=== PATIENT | male | born 1985 | race Caucasian/White ===

== ENCOUNTER 2021-06-25 09:17 | Outpatient (REF) | payer OTHER, SELFPAY ==
--- NOTE | ~2021-06-25 | XR_ITS ---
EXAMINATION: XR CHEST CLINICAL INFORMATION: Gastroesophageal reflux disease COMPARISON: None TECHNIQUE: 2 views of the chest were obtained. FINDINGS: Normal symmetric lung volumes. No parenchymal consolidation. No pleural effusion. No pneumothorax. Cardiomediastinal silhouette and pulmonary vascularity are within normal limits. No acute osseous abnormalities. XR/XR chest 2V IMPRESSION: No acute findings
[2021-06-25 11:09] LABS: MANUAL DIFF FLAG NO
[2021-06-25 11:16] LABS: Basophils Percent Auto 0.7 % (0-2); Eosinophils Absolute Auto 0.2 X10*3/uL (0.0-0.4); Eosinophils Percent Auto 2.8 % (0-4); Hematocrit 45.9 % (42.0-52.0); Hemoglobin 15.2 g/dl (14.0-18.0); Imm Gran Abs Auto 0.03 X10*3/uL (0.00-0.03); Imm Gran Pct Auto 0.5 % (0.0-0.4); Lymphocytes Absolute Auto 1.7 X10*3/uL (1.2-4.9); Lymphocytes Percent Auto 28.2 % (20-40); Mean Corpuscular HGB Conc 33.1 g/dl (31.0-36.0); Mean Corpuscular Hemoglobin 29.5 pg (27.0-33.0); Mean Corpuscular Volume 89.1 fL (80.0-98.0); Mean Platelet Volume 11.4 fL (9.4-12.4); Monocytes Absolute Auto 0.5 X10*3/uL (0.1-1.2); Monocytes Percent Auto 8.3 % (2-11); Neutrophils Absolute Auto 3.7 x10*3/uL (2.0-8.3); Neutrophils Percent Auto 59.5 % (45-73); Platelet Count 231 X10*3/uL (160-400); Red Blood Count 5.15 X10*6/uL (4.60-5.80); Red Cell Distribution Width 11.1 % (11.0-16.0); White Blood Count 6.1 X10*3/uL (4.8-10.8)
[2021-06-25 11:37] LABS: Alanine Aminotransferase 33 U/L (0-40); Albumin Level 4.5 g/dL (3.5-5.0); Alkaline Phosphatase 54 U/L (39-117); Anion Gap 11 (12-20); Aspartate Amino Transferase 23 U/L (5-37); Bilirubin Total 0.6 mg/dL (0.0-1.0); Blood Urea Nitrogen 11 mg/dL (9-16); Calcium 9.6 mg/dL (8.4-10.2); Carbon Dioxide 30 mmol/L (22-29); Chloride 101 mmol/L (96-108); Cholesterol 182 mg/dL; Estimated Glomerular Filt Rate > 60; Glucose Random 95 mg/dL (60-115); HDL Cholesterol 39 mg/dL; LDL Cholesterol Calculated 125 mg/dl; Potassium 4.2 mmol/L (3.3-5.1); Sodium 138 mmol/L (135-145); Total Protein 7.5 g/dL (6.5-8.0); Triglycerides 90 mg/dL
--- NOTE | 2021-06-25 11:57 | ECG_ITS ---
Test Reason : CHEST PAIN Blood Pressure : / mmHG Vent. Rate : 062 BPM Atrial Rate : 062 BPM P-R Int : 130 ms QRS Dur : 092 ms QT Int : 378 ms P-R-T Axes : 080 072 045 degrees QTc Int : 383 ms Normal sinus rhythm Normal ECG No previous ECGs available Referred By: Lucinda Plata Electronically Signed By:SILVINO HOLCOMB MD
[2021-06-25 12:03] LABS: Free T4 (Free Thyroxine) 0.97 ng/dL (0.71-1.85); Thyroid Stimulating Hormone 0.52 uIU/mL (0.32-4.0)
[2021-06-25 12:38] LABS: Folate 13.7 ng/mL (> or = 4.0); Vitamin B12 371 pg/mL (200-900)
== END 2021-06-25 09:18 | disposition home or self-care (01) ==
LOC: HO.WFDLDS 09:17
PROVIDERS: PCP Internal Medicine; Visit Provider Internal Medicine
DX: R07.9 Chest pain, unspecified (principal); K21.9 Gastro-esophageal reflux disease without esophagitis; R51.9 Headache, unspecified; E78.00 Pure hypercholesterolemia, unspecified
CPT/HCPCS: 36415; 71046; 80053; 80061; 82607; 82746; 84439; 84443; 85025; 93005

== ENCOUNTER 2021-07-18 08:17 | Outpatient (REF) | payer OTHER, SELFPAY ==
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
== END 2021-07-18 08:18 | disposition home or self-care (01) ==
LOC: HO.CT 08:17
PROVIDERS: Visit Provider Internal Medicine
DX: R51.9 Headache, unspecified (principal)
CPT/HCPCS: 70450

== ENCOUNTER 2022-01-06 09:03 | Outpatient (REF) | payer OTHER, SELFPAY ==
--- NOTE | 2022-01-06 14:16 | PFT_ITS ---
FLOWS: FEV1 103% of predicted at 3.81 L. FVC 92% of predicted at 4.20 L. FEV1 to FVC ratio of 0.91. No bronchodilator response. LUNG VOLUMES: Total lung capacity 95% of predicted at 5.62 L. Residual volume 89% of predicted at 1.31 L. Slow vital capacity 97% of predicted at 4.31 L. Expiratory reserve volume 108% of predicted at 1.47 L. Diffusion capacity is normal. IMPRESSION: No obstructive or restrictive ventilatory defect. No bronchodilator response. Essentially normal pulmonary function test. Leon Vnace MD AP/MODL / [id number]
== END 2022-01-06 09:04 | disposition home or self-care (01) ==
LOC: HO.RESP 09:03
PROVIDERS: PCP Internal Medicine; Visit Provider Internal Medicine
DX: Z87.891 Personal history of nicotine dependence (principal)
CPT/HCPCS: 94060; 94727; 94729

== ENCOUNTER 2022-01-20 10:30 | Outpatient (REF) | payer OTHER, SELFPAY ==
--- NOTE | ~2022-01-20 | FL_ITS ---
EXAMINATION: FL UPPER GI SERIES CLINICAL INFORMATION: R13.10 - Dysphagia, unspecified COMPARISON: Chest radiographs 06/25/2021 TECHNIQUE: Upper GI series and barium swallow are performed using fluoroscopic evaluation in addition to multiple fluoroscopic spot views, including cine images during swallowing. The patient is imaged both upright and prone and using both thick and thin barium sulfate along with effervescent granules. Water siphon test performed. Barium pill challenge also performed. Fluoroscopy time: 1.8 minutes DAP: 12.81 Gycm2 Fluoroscopic spot images: 32 FINDINGS: There is normal esophageal motility. The cervical esophagus shows no web or diverticulum, No cervical achalasia. No aspiration. The thoracic esophagus show no obstruction, stricture, or ulceration. There is no hiatal hernia demonstrated. No gastroesophageal reflux. Use of barium pill shows prompt transit from the mouth to the stomach. The stomach shows no thickened folds or ulcer crater or outlet obstruction. The duodenal bulb is pliable and without ulcer crater or scarring. The post bulbar duodenum and the upper jejunal mucosal pattern are unremarkable. FL/FL upper GI series IMPRESSION: Unremarkable exam.
== END 2022-01-20 10:31 | disposition home or self-care (01) ==
LOC: HO.XRAY 10:30
PROVIDERS: PCP Internal Medicine; Visit Provider Internal Medicine
DX: R13.10 Dysphagia, unspecified (principal); Z87.891 Personal history of nicotine dependence
CPT/HCPCS: 74240

== ENCOUNTER → 2022-01-22 14:26 | Outpatient (BNVA) | payer OTHER, SELFPAY | PROVIDERS: PCP Internal Medicine; Referring Provider Internal Medicine; Visit Provider Surgery | DX: K60.3 Anal fistula (principal) | CPT/HCPCS: 99202 ==

== ENCOUNTER → 2022-01-26 15:51 | Outpatient (BNVA) | payer OTHER, SELFPAY | PROVIDERS: PCP Internal Medicine; Visit Provider Surgery | DX: K62.89 Other specified diseases of anus and rectum (principal) | CPT/HCPCS: 99202 ==

== ENCOUNTER 2022-02-09 10:26 | Outpatient (REF) | payer OTHER, SELFPAY ==
[2022-02-09 10:37] VITALS: BMI 25.7
[2022-02-09 10:44] VITALS: BP 118/79; PULSE 69; RESP 16; TEMP 36.4; O2SAT 98
[2022-02-09 11:21] VITALS: BP 130/72; PULSE 63; RESP 16; O2SAT 99
--- NOTE | 2022-02-09 11:25 | W.PM.OPN ---
Operative Note Operative Note Date of Service: 02/09/22 Narrative: Preop diagnosis: Perianal cyst Postop diagnosis: Anal fistula Procedure: Examination of the anus and rectal areas under local anesthesia Surgeon: Kevin Longoria MD The patient is a 37-year-old male who was scheduled for excision of a perianal cyst today in the minor procedure room. He understood the technique of the procedure. He was aware of the risks, benefits, and alternatives. He was brought to the minor procedure room and placed in prone position. A surgical time-out was done. I applied tape to both buttock to retract this laterally and expose the cyst optimally There was note of a cystic induration seen about 2 cm from the anal verge. This was well-defined. This area was prepped and draped. I then infiltrated this entire area with lidocaine 1%. After giving him a cane, I was able to then examine the area thoroughly. There were no other lesions no induration However I was able to use a fine hemostat to probe into this cystic induration. There was an open sinus and by following this, I was actually able to rectal nice the tract leading into the anal canal. This was therefore consistent with the anal fistula. The tract went radially the anal canal. I therefore did not proceed with excision of this cyst. I explained to him that this was actually an anal fistula with a tract leading to the anal canal. I told him that treatment would require exam under anesthesia and operating room, possible fistulotomy, and possible seton placement I explained to the technique of this procedure. We will schedule him for this procedure in the operating room.
== END 2022-02-09 10:27 | disposition home or self-care (01) ==
LOC: HO.MS 10:26
PROVIDERS: PCP Internal Medicine; Visit Provider Surgery
PROC: (CPT 46922; principal; 2022-02-09 11:00)
DX: K60.3 Anal fistula (principal)
CPT/HCPCS: 46922

== ENCOUNTER 2022-02-17 08:13 | Day surgery (SDC) | payer OTHER, SELFPAY ==
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
[2022-02-17] VITALS (8 sets, daily range): BP systolic 123–144; BP diastolic 58–91; PULSE 77–94; RESP 16–18; TEMP 36.5–37; O2SAT 94–100; BMI 25.7
[2022-02-17] MEDS: Lactated Ringers 1,000 ML 100 ML IVCONT (09:13)
--- NOTE | 2022-02-17 09:33 | MHC.SHP ---
Pre-Procedural Eval Section A Date of Service: 02/17/22 The patient is an INPATIENT: No The History & Physical has been completed within 30 days and I have reviewed it.: Yes Section B Chief Complaint: Other specified diseases of anus and rectum Allergies: Allergies Allergy/AdvReac Type Severity Reaction Status Date / Time No Known Allergies Allergy Verified 01/26/22 16:08 [No Known Allergies*] Plan I have reviewed the history and physical and performed a pertinent physical examination on my patient. No changes have occurred unless specified.
--- NOTE | 2022-02-17 11:10 | P.OP_ITS ---
Operative Note Operative Note Date of Service: 02/17/22 Narrative: Preop diagnosis: Anal fistula Postop diagnosis: Anal fistula, with an external sinus on the left side anterolaterally about 4-5 cm from the anal verge and a 2nd external sinus on the right side, about cm from the anal verge also enter laterally; the left external fistulous tract seemed to a very long tract all the way running towards the posterior anal canal; I could not identify internal fistulous opening on the fistula on the right side Procedure: Exam under anesthesia, excision of a fistulous tract on the left perianal area Surgeon: Kevin Longoria MD The patient is a 37-year-old male who was seen in the office because of what appeared to be a recurrent inflamed cyst the left perianal area. I had scheduled him for excision of this cyst under local anesthesia but on further examination, this actually appeared to be more of a fistulous tract rather than a simple cyst. I therefore schedule him for exam under anesthesia and possible fistulotomy and possible seton placement in the operating room. He understood the technique of the planned procedure as well as the risks, benefits, and alternatives He was brought to the operating room placed in prone radha-knife position under general anesthesia via laryngeal mask airway. The buttocks were retracted with wide tape laterally. The perianal area was prepped and draped in the usual sterile fashion. examination of the perianal area revealed what appeared to be a well-defined external fistulous opening on the left perianal area about 4 cm from the verge. On the right side also anterior laterally is note of a smaller less well-defined external fistulous opening about 1-2 cm from the anal verge. I inserted a Sofi Kraft retractor and examined the anal canal circumferentially. There was no obvious internal fistulous opening nor induration along the dentate line that may represent an obvious internal opening. However, I could feel a cord-like induration from the external fistulous opening on the left that seemed to tortuously lead posteriorly into the midline. I injected this external fistulous opening on the left with hydrogen peroxide solution using a gauge 20 a catheter. There was note of what appeared to be affluent on the posterior midline along the dentate line. I therefore passed the probe from the external fistula and try to advance that through the tract I opened. I unroofed the tract near the renal fistulous opening with electrocautery to allow as to follow this as it went more posteriorly towards the no canal. I was able to act ually visualize the epithelialized tract and I sharply dissected this off of the rest of the subcutaneous layer using Metzenbaum scissors. I try to follow this all the way to the posterior midline but in view of the tortuosity and sharp curvature, I could not directly see where this lead 2. I could not therefore advanced the probe either so I excise this fistula tract to as far as we could reach and this was sent as a specimen. I could not identify the rest of the tract closer to the posterior midline. In view of the risk of creating falls tracts, I decided not to be too aggressive with passing the probe. I therefore cauterized the unroof area. I then turned our attention to the external fistulous opening on the right side. I passed the probe through this but this appeared to be blind and I could not advance it further than about 1 cm. I injected this with hydrogen peroxide in the same manner sub of using an Angiocath but I could not see any effluent in the anal canal. We attempted to pass the probe further but we could not identify the tract leading into the anal canal. Again in view of the risk of creating false tract abdomen, I decided not to continue further. I reexamined the anal canal again using the rosalina Kraft retractor and there did not appear to be any other lesions nor any induration. I infiltrated the perianal area with Marcaine 0.5% for postop analgesia and the procedure was completed The patient tolerated procedure well. There were no immediate complications. Estimated blood loss was less than 5 cc The patient was extubated without difficulty and transferred to recovery room with stable vital signs . I will see him in the office and schedule him for an MRI to identify and define all tracts.
[2022-02-17] MEDS: oxyCODONE HCl Immed Release 5 MG TABLET 10 MG PO (11:37)
[2022-02-17] MEDS: fentaNYL citrate/PF 100 MCG/2 ML VIAL 50 MCG IVPUSH ×2 (11:37→11:42)
== END 2022-02-17 13:04 | disposition home or self-care (01) ==
PROVIDERS: PCP Internal Medicine; Visit Provider Surgery
PROC: (CPT 46270; principal; 2022-02-17 09:50)
DX: K60.3 Anal fistula (principal)
CPT/HCPCS: 46270; 88304; J1885; J2405; J2795; J3010

== ENCOUNTER → 2022-03-02 14:24 | Outpatient (BNVA) | payer OTHER, SELFPAY | PROVIDERS: PCP Internal Medicine; Visit Provider Surgery | DX: K60.3 Anal fistula (principal); Z98.890 Other specified postprocedural states | CPT/HCPCS: 99212 ==

== ENCOUNTER 2022-03-09 18:46 | Outpatient (REF) | payer OTHER, SELFPAY | END 2022-03-09 18:47 | disposition home or self-care (01) | LOC: HO.MRI 18:46 | PROVIDERS: Visit Provider Surgery | DX: Z13.89 Encounter for screening for other disorder (principal) ==

== ENCOUNTER 2022-03-17 10:54 | Outpatient (REF) | payer OTHER, SELFPAY ==
--- NOTE | ~2022-03-17 | MR_ITS ---
EXAMINATION: MR PELVIS WITHOUT AND WITH CONTRAST CLINICAL INFORMATION: Annual fistula. E 60.3. Surgery late January 2022. Follow-up. COMPARISON: Upper GI series 01/20/2022 TECHNIQUE: MRI pelvis is performed without and with 7 mL Gadavist gadolinium contrast. Imaging is performed in 3 planes. FINDINGS: There are no focal inflammatory changes seen in the bowel, mesentery, perirectal soft tissues, or perianal region. No visible fistula or fluid collection. The ischial anal and ischial rectal fossa appears normal. Levator ani appears symmetric. There is no pelvic ascites. No bowel obstruction. There is no deep pelvic or inguinal lymphadenopathy. No inguinal hernia. The bladder is nondistended, unremarkable. Prostate and seminal vesicles appear symmetric. Large [id number] coronal images show no hydronephrosis. There is posterior disc bulging at lumbosacral junction. No bony abnormality. MR/MR pelvis wo/w con IMPRESSION: 1. No visible fistula or fluid collection. 2. No inflammatory changes seen in the bowel, mesentery, perirectal soft tissues, or perianal region. 3. Posterior disc bulging lumbosacral junction.
== END 2022-03-17 10:55 | disposition home or self-care (01) ==
LOC: HO.MRI 10:54
PROVIDERS: Visit Provider Surgery
DX: K60.3 Anal fistula (principal)
CPT/HCPCS: 72197; A9585

== ENCOUNTER → 2022-03-26 14:13 | Outpatient (BNVA) | payer OTHER, SELFPAY | PROVIDERS: PCP Internal Medicine; Visit Provider Surgery | DX: K60.3 Anal fistula (principal) | CPT/HCPCS: 99212 ==

== ENCOUNTER → 2022-04-23 10:22 | Outpatient (BNVA) | payer OTHER, SELFPAY | PROVIDERS: PCP Internal Medicine; Visit Provider Surgery | DX: Z13.89 Encounter for screening for other disorder (principal) ==

== ENCOUNTER → 2022-05-12 11:54 | Outpatient (BNVA) | payer OTHER, SELFPAY | PROVIDERS: PCP Internal Medicine; Visit Provider Physician Assistant | DX: Z13.89 Encounter for screening for other disorder (principal) ==

== ENCOUNTER 2022-05-12 12:45 | Outpatient (REF) | payer OTHER, SELFPAY ==
[2022-05-12 13:52] LABS: MANUAL DIFF FLAG NO
[2022-05-12 13:59] LABS: Basophils Percent Auto 0.4 % (0-2); Eosinophils Absolute Auto 0.1 X10*3/uL (0.0-0.4); Eosinophils Percent Auto 1.8 % (0-4); Hematocrit 43.1 % (42.0-52.0); Hemoglobin 14.7 g/dl (14.0-18.0); Imm Gran Abs Auto 0.02 X10*3/uL (0.00-0.03); Imm Gran Pct Auto 0.3 % (0.0-0.4); Lymphocytes Absolute Auto 2.5 X10*3/uL (1.2-4.9); Lymphocytes Percent Auto 36.9 % (20-40); Mean Corpuscular HGB Conc 34.1 g/dl (31.0-36.0); Mean Corpuscular Hemoglobin 29.9 pg (27.0-33.0); Mean Corpuscular Volume 87.6 fL (80.0-98.0); Mean Platelet Volume 11.1 fL (9.4-12.4); Monocytes Absolute Auto 0.6 X10*3/uL (0.1-1.2); Monocytes Percent Auto 8.3 % (2-11); Neutrophils Absolute Auto 3.6 x10*3/uL (2.0-8.3); Neutrophils Percent Auto 52.3 % (45-73); Platelet Count 248 X10*3/uL (160-400); Red Blood Count 4.92 X10*6/uL (4.60-5.80); Red Cell Distribution Width 11.3 % (11.0-16.0); White Blood Count 6.8 X10*3/uL (4.8-10.8)
[2022-05-12 14:44] LABS: Erythrocyte Sedimentation Rate 6 MM/HR (0-15)
[2022-05-12 15:00] LABS: Alanine Aminotransferase 32 U/L (0-40); Albumin Level 4.5 g/dL (3.5-5.0); Alkaline Phosphatase 55 U/L (39-117); Anion Gap 11 (12-20); Aspartate Amino Transferase 21 U/L (5-37); Bilirubin Total 0.8 mg/dL (0.0-1.0); Blood Urea Nitrogen 8 mg/dL (9-16); C Reactive Protein 0.26 mg/dL (< or = 0.50); Calcium 9.5 mg/dL (8.4-10.2); Carbon Dioxide 33 mmol/L (22-29); Chloride 101 mmol/L (96-108); Estimated Glomerular Filt Rate > 60; Glucose Random 88 mg/dL (60-115); Potassium 3.8 mmol/L (3.3-5.1); Sodium 141 mmol/L (135-145); Total Protein 7.3 g/dL (6.5-8.0)
[2022-05-12 15:17] LABS: Thyroid Stimulating Hormone 0.54 uIU/mL (0.32-4.0)
== END 2022-05-12 12:46 | disposition home or self-care (01) ==
LOC: HO.WFDLDS 12:45
PROVIDERS: Visit Provider Physician Assistant
DX: Z01.818 Encounter for other preprocedural examination (principal); R19.4 Change in bowel habit; K62.5 Hemorrhage of anus and rectum; K60.3 Anal fistula
CPT/HCPCS: 36415; 80053; 84443; 85025; 85652; 86140; 99202

== ENCOUNTER → 2022-05-13 13:38 | Outpatient (BNVA) | payer OTHER, SELFPAY | PROVIDERS: PCP Internal Medicine; Visit Provider Surgery | DX: Z48.815 Encounter for surgical aftercare following surgery on the digestive system (principal) | CPT/HCPCS: 99212 ==

== ENCOUNTER 2022-07-08 10:39 | Day surgery (SDC) | payer OTHER, SELFPAY ==
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
[2022-07-08 10:43] VITALS: BMI 25.7
[2022-07-08 10:51] VITALS: BP 119/70; PULSE 74; RESP 16; TEMP 36.4; O2SAT 98
[2022-07-08] MEDS: Lactated Ringers 1,000 ML 100 ML IVCONT (11:06)
--- NOTE | 2022-07-08 11:12 | MHC.SHP ---
Pre-Procedural Eval Section A Date of Service: 07/08/22 Section B Chief Complaint: bleed,anal fistula,change in bowel habits Relevant Family History (Specify if Yes): No Relevant Social History: None Present Medications: see Short Stay Collaborative assessment Medical History: Significant History (GERD (gastroesophageal reflux disease) Perianal cyst Sebaceous cyst Surgical arteriovenous fistula hemorrhage) History of Previous Operations: Relevant previous surgery/procedure and date(s) (back surgery) Allergies: Allergies Allergy/AdvReac Type Severity Reaction Status Date / Time mri contrast AdvReac Mild Nausea Uncoded 05/12/22 12:01 Review of Systems Sugical H&P ROS: Negative: Constitution, Cardiovascular, Respiratory, Neurological, Psychiatric, Hem-Onc, Allergic/Immunologic, Gastrointestinal, Genitourinary, Musculoskeletal, Integumentary, Endocrine and Eyes/Ears/Nose/Throat Exam Surgical H&P Exam: Normal: HEENT, Normal: Heart, Normal: Lungs, Normal: Extremities, Normal: Abdomen, Normal: Skin and Normal: Neurological Plan Diagnosis/Plan: Unchanged I have reviewed the history and physical and performed a pertinent physical examination on my patient. No changes have occurred unless specified. Time Spent With Patient Time: Total time managing care of this patient today ____ minutes.
--- NOTE | 2022-07-08 11:50 | P.OP_ITS ---
Operative Note Operative Note Date of Service: 07/08/22 Narrative: Operative Information Procedure Description: Colonoscopy Indication: altered bowel habits, hx of anal fistula Anesthesia: MAC COLONOSCOPY Instrument: Olympus variable stiffness pediatric scope 190L Colonoscopy Monitoring: Vital signs and clinical assessment, continuous EKG monitoring, Pulse oximetry, Carbon Dioxide monitoring and blood pressure monitoring were done throughout the procedure. Colon withdrawal time was 12 minutes. Procedure: The patient was placed in the left lateral decubitis position and pre-procedure medications were administered. After a digital rectal examination of the ano-rectum, the video colonoscope was inserted into the rectum and advanced through the colon to the cecum/TI. The colonoscope was slowly withdrawn in a retrograde panoramic fashion and the colon mucosa was carefully examined including a retroflexed view of the rectum. Findings and interventions are described below. Procedure Difficulty: easy Findings: Terminal Ileum-normal, random bx taken Cecum:normal, random bx taken Ascending Colon: normal, random bx taken Transverse Colon -normal, random bx taken Descending Colon:normal, random bx taken Sigmoid Colon: thickened folds with mild diverticulosis noted with patchy erythema, bx taken Rectum: Retroflexion with small internal hemorrhoids, grade I Anorectum - normal Colon preparation: [place] Bowel Preparation Scale Right colon; 3 Transverse colon: 3 Left colon; 3 (0 = Unprepared colon segment with mucosa not seen due to solid stool that cannot be cleared. 1 = Portion of mucosa of the colon segment seen, but other areas of the colon segment not well seen due to staining, residual stool and/or opaque liquid. 2 = Minor amount of residual staining, small fragments of stool and/or opaque liquid, but mucosa of colon segment seen well. 3 = Entire mucosa of colon segment seen well with no residual staining, small fragments of stool or opaque liquid) Impression and Post Procedure Diagnosis: internal hemorrhoids diverticular disease non specific mild colitis sigmoid, ?SCAD or IBD Plan: High fiber diet leaflet Avoid straining at stool, epsom salts and sitz bath, anusol supps or cream Repeat Colonoscopy aged 45 or earlier if clinically indicated Above findings were reviewed with the patient and relevant handouts were provided if indicated.
[2022-07-08 12:00] VITALS: BP 121/80; PULSE 78; RESP 18; TEMP 36.8; O2SAT 99
[2022-07-08 12:15] VITALS: BP 123/79; PULSE 74; RESP 18; TEMP 36.2; O2SAT 100
== END 2022-07-08 12:48 | disposition home or self-care (01) ==
PROVIDERS: PCP Internal Medicine; Visit Provider Internal Medicine Gastroenterology
PROC: 0DJD8ZZ Inspection of Lower Intestinal Tract, Via Natural or Artificial Opening Endoscopic (ICD-10-PCS; CPT 45378; principal; 2022-07-08 11:50)
DX: R19.4 Change in bowel habit (principal); Z87.19 Personal history of other diseases of the digestive system; K62.5 Hemorrhage of anus and rectum; K57.30 Diverticulosis of large intestine without perforation or abscess without bleeding; K64.0 First degree hemorrhoids; K52.9 Noninfective gastroenteritis and colitis, unspecified; Z91.041 Radiographic dye allergy status; Z79.1 Long term (current) use of non-steroidal anti-inflammatories (NSAID); Z98.890 Other specified postprocedural states; Z87.891 Personal history of nicotine dependence
CPT/HCPCS: 45380; 88305

== ENCOUNTER → 2022-07-22 09:00 | Outpatient (BNVA) | payer OTHER, SELFPAY | PROVIDERS: PCP Internal Medicine; Visit Provider Physician Assistant | DX: K64.9 Unspecified hemorrhoids (principal); K60.3 Anal fistula; R19.4 Change in bowel habit | CPT/HCPCS: 99212 ==

== ENCOUNTER → 2022-07-30 09:10 | Outpatient (BNVA) | payer OTHER, SELFPAY | PROVIDERS: PCP Internal Medicine; Visit Provider Surgery | DX: K60.3 Anal fistula (principal) | CPT/HCPCS: 99212 ==

== ENCOUNTER 2022-12-18 14:59 | Outpatient (AMB) | payer OTHER, SELFPAY ==
[2022-12-18 15:01] VITALS: BP 118/60; PULSE 85; O2SAT 97; BMI 26.1
--- NOTE | 2022-12-18 15:01 | MHC.PC.OV ---
Vital Signs 12/18/22 15:01 Height 5 ft 5 in Weight 157 lb BMI 26.1 BP 118/60 Blood Pressure Location Lt brachial Position Sitting Pulse 85 Pulse Source Pulse Oximeter Pulse Oximetry (%) 97 Oxygen Delivery Method Room Air Intake Visit Reasons: Annual Exam Allergies mri contrast Adverse Reaction (Mild, Uncoded 12/18/22 15:01) Nausea Medication List - Last Reconciled 12/18/22 by Lucinda Plata MD Bacillus coagulans (Digestive Advantage Probiotic Gummy) cells PO ibuprofen 600 mg PO Q6H PRN methylcellulose (laxative) (Citrucel) 500 mg PO TID zasejvjk-qqk-lebbrvo sulfate 4.5 mg iron (One Daily Multivitamins with Minerals) ea PO .QD Tobacco use date assessed: 03/30/22 Dental Screening Dental Screen Date: 12/18/22 Did you have a dental visit in the last 12 months?: Yes Did you have a dental problem in the last 6 months where you did not have access to dental care?: No Was dental information given to patient?: Patient has dentist HPI Annual Exam HPI Details 37-year-old overweight male with a history of anal fistula follow us with the surgeon GERD coming in for physical exam. Colonoscopy is up-to-date review of the notes follows up with the surgeon for the anal fistula status post debridement fistulotomy well-healed. Patient did have colonoscopy done in June 2022 negative. Patient states getting frustrated with the anal fistula as it is not healing and wants to get 2nd opinion referral. Otherwise no nausea no vomiting no chest pains no shortness of breath. PFSH Medical History GERD (gastroesophageal reflux disease) Surgical arteriovenous fistula hemorrhage Perianal cyst Sebaceous cyst Surgical History Hx of colonoscopy History of surgery (02/17/22) Previous back surgery Family History Mother No problems noted. Father No problems noted. Brother No problems noted. Brother No problems noted. Sister No problems noted. Social History (Updated 12/18/22 @ 15:19 by Lucinda Plata MD) Housing: Apartment Alcohol intake: current Patient Tobacco Use Status: Former Tobacco user Tobacco use type: Cigarette Years Smoked: teen, now MJ e-Cigarette/Vaping Use: Never Used Second Hand Smoke Exposure: No Substance Use Type: Marijuana Current occupational status: employed Current occupation: [employer] Cognitive needs: No Hearing needs: No Vision needs: No Questionnaire PHQ-9 Over the last 2 weeks, how often have you been bothered by any of the following problems? 1. Little interest or pleasure in doing things: not at all 2. Feeling down, depressed, or hopeless: not at all 3. Trouble falling or staying asleep, or sleeping too much: not at all 4. Feeling tired or having little energy: not at all 5. Poor appetite or overeating: not at all 6. Feeling bad about yourself - or that you are a failure or have let yourself or your family down: not at all 7. Trouble concentrating on things, such as reading the newspaper or watching television: not at all 8. Moving or speaking so slowly that other people could have noticed. Or the opposite - being so fidgety or restless that you have been moving around a lot more than usual: not at all 9. Thoughts that you would be better off or of hurting yourself in some way: not at all Total score: 0 Depression Screening Interpretation: Negative Source: Developed by Drs. Tc Garcia, Gi Chavez, Gagan Sanchez and colleagues, with an educational jose j from [employer]. Thrive Questionnaire Date Thrive assessed: 03/30/22 AUDIT C Alcohol Use Questionnaire (AUDIT-C) 1. How often do you have a drink containing alcohol?: Never 2. How many drinks containing alcohol do you have on a typical day when you are drinking?: 1 or 2 (0) 3. How often do you have six or more drinks on one occasion?: Never Total Score: 0 LAURA-7 AMB Questionnaire LAURA-7 Date LAURA - 7 assessed: 03/30/22 Source: Developed by Drs. Tc Garcia, Gi Chavez, Gagan Sanchez and colleagues, with an educational jose j from [employer]. Review of Systems Const Denies poor appetite and Denies weakness Eyes Denies no additional complaints ENT Reports Normal hearing present, Denies dizziness, Denies nasal congestion, Denies tinnitus and Denies sore throat Card Denies chest pain, Denies syncope, Denies rapid heart rate and Denies dyspnea Resp Denies cough and Denies dyspnea GI Denies change in stool character, Reports constipation, Denies diarrhea, Denies nausea and Denies vomiting Denies dysuria and Denies urinary frequency Neuro Reports Normal hearing present, Denies confusion, Denies dizziness, Denies syncope and Denies weakness Psych Denies confusion Physical exam (Primary Care) Vital Signs: Last Vital Signs Pulse 85 12/18/22 15:01 BP 118/60 12/18/22 15:01 Pulse Ox 97 12/18/22 15:01 Oxygen Delivery Method Room Air 12/18/22 15:01 BMI result Body Mass Index 26.1 Tobacco/Smoking Status: Tobacco use Status Tobacco use date assessed 03/30/22 12/18/22 15:05 Patient Tobacco Use Status Former Tobacco user 12/18/22 15:05 Tobacco use type Cigarette 12/18/22 15:05 e-Cigarette/Vaping Use Never Used 12/18/22 15:05 PHQ-9: PHQ-9 Score PHQ-9: Total score 0 12/18/22 15:05 Depression Screening Interpretation: Negative Thrive Assessment: Date of Thrive Assessment Date Thrive assessed 03/30/22 12/18/22 15:05 Const General: No confusion Orientation/consciousness: No confusion HENMT Head: Yes normocephalic Ears: external ears normal and TM's normal bilaterally Face and sinus: Yes normal facial exam Mouth: moist mucous membranes Throat: Yes tonsils normal Eyes Conjunctivae: conjunctivae normal Pupils: Equal, round and reactive pupils present and Pupil accommodation reflex normal Direct Ophthalmoscopy: normal light reflex Neck Neck: No lymphadenopathy Thyroid: Thyroid normal Chest Chest palpation & inspection: normal inspection of the chest Resp Effort & Inspection: normal respiratory effort and no audible wheezes Auscultation: clear to auscultation bilaterally, no crackles, no wheezes and lung sounds not diminished Cardio Rate: regular rate Rhythm: regular rhythm Peripheral pulses: radial pulses present and dorsalis pedis present GI Palpation (GI): no masses Auscultation: normal bowel sounds and normoactive bowel sounds Rectal Exam - Male: Yes deferred Male General Exam: Yes normal external exam Skin General skin exam: no rashes or lesions noted Rashes: no rashes Neuro General: No confusion Cranial nerves: Yes Equal, round and reactive pupils present and Yes Normal hearing present Cognition (Neuro): normal cognition Gait exam (Neuro): Normal gait present Motor exam (neuro): 5/5 motor strength present throughout Deep tendon reflexes (DTR's): Right brachioradialis reflex intensity grade: 2+, Left brachioradialis reflex intensity grade: 2+, Right patellar reflex intensity grade: 2+ and Left patellar reflex intensity grade: 2+ Extrem General: No edema Assessment and Plan Assessment & Plan (1) Annual physical exam: Code(s): Z00.00 - Encounter for general adult medical examination without abnormal findings (2) GERD (gastroesophageal reflux disease): Code(s): K21.9 - Gastro-esophageal reflux disease without esophagitis Plan: Avoid the foods that causes that usually spicy foods, tomato products, juices, coffee, soda and foods that your sensitive to. After eating do not lie down, allow 3-4 hours before in lie down. And keep the head of bed above 30 degrees to avoid the acid from going up. (3) Anal fistula: Code(s): K60.3 - Anal fistula Plan: Patient continues to follow-up with the surgeon. Had colonoscopy done. (4) Perianal cyst: Code(s): K62.89 - Other specified diseases of anus and rectum Orders: Referrals General Surgery Referral K60.3 - Anal fistula, K62.89 - Other specified diseases of anus and rectum Coding Level of Care Code Est Pt Prev Care 18-39y(73321) Diagnoses Annual physical exam Z00.00 GERD (gastroesophageal reflux disease) K21.9 Anal fistula K60.3 Perianal cyst K62.89 Additional Codes PHQ-9 - 32531 - PHQ-9 Billing: ([id number])
== END 2022-12-18 15:45 | disposition home or self-care (01) ==
PROVIDERS: Visit Provider Internal Medicine
DX: Z00.00 Encounter for general adult medical examination without abnormal findings (principal); K21.9 Gastro-esophageal reflux disease without esophagitis; K60.3 Anal fistula; K62.89 Other specified diseases of anus and rectum; Z23 Encounter for immunization
CPT/HCPCS: 90471; 90715; 99395

== ENCOUNTER 2023-04-22 15:43 | Outpatient (AMB) | payer OTHER, SELFPAY ==
--- NOTE | 2023-04-22 15:44 | A.OFFVIS_ITS ---
Intake Vital Signs 04/22/23 15:51 Height 5 ft 5 in Weight 162 lb BMI 27.0 BP 129/74 Blood Pressure Location Rt brachial Position Sitting Pulse 73 Intake Visit Reasons: Anal fistula Intake Note: This patient presents for an assessment for anal fistula. Pt c/o; reports no complaints at this time. [employer] Department Supervisor Required: No Accompanied by: Self / Same As Patient Allergies mri contrast Adverse Reaction (Mild, Uncoded 04/22/23 15:51) Nausea Medication List - Last Reconciled 04/22/23 by Kevin Longoria MD Bacillus coagulans (Digestive Advantage Probiotic Gummy) cells PO ibuprofen 600 mg PO Q6H PRN methylcellulose (laxative) (Citrucel) 500 mg PO TID elpmemxk-vwh-kfklcqt sulfate 4.5 mg iron (One Daily Multivitamins with Minerals) ea PO .QD HPI Anal fistula HPI Details I had done fistulotomy for official subcutaneous fistula on the perianal area in January,. I did not see any internal fistulous connections. I had unroof this area and debrided this in the OR at that time He stated that the open wound eventually healed but he had notice recurrence of what he calls pimple like lesions on the area. This would occasionally drain although with scanty fluid. He denies significant swelling. [facility] Medical History GERD (gastroesophageal reflux disease) Surgical arteriovenous fistula hemorrhage Perianal cyst Sebaceous cyst Surgical History Hx of colonoscopy History of surgery (02/17/22) Previous back surgery Family History Mother No problems noted. Father No problems noted. Brother No problems noted. Brother No problems noted. Sister No problems noted. Social History Housing: Apartment Alcohol intake: current Comment: ok at 3 Patient Tobacco Use Status: Former Tobacco user Tobacco use type: Cigarette Years Smoked: teen, now MJ e-Cigarette/Vaping Use: Never Used Second Hand Smoke Exposure: No Substance Use Type: Marijuana Current occupational status: employed Current occupation: [employer] Cognitive needs: No Hearing needs: No Vision needs: No Review of Systems Const Denies chills and Denies fever(s) Card Denies chest pain, Denies dyspnea and Denies dyspnea on exertion Resp Denies cough, Denies dyspnea and Denies dyspnea on exertion GI Denies hematochezia and Denies change in bowel habits Denies hematuria and Denies difficulty urinating Musc Denies back pain and Denies limited range of motion Neuro Denies focal weakness and Denies convulsions Psych Denies depression and Denies mood swings Physical Exam Vital Signs: Last Vital Signs Pulse 73 04/22/23 15:51 BP 129/74 04/22/23 15:51 BMI result Body Mass Index 27.0 Const General: comfortable and no acute distress Orientation/consciousness: patient oriented x3 Neck Neck: Yes no lymphadenopathy Resp Auscultation: clear to auscultation bilaterally Cardio Rhythm: regular rhythm GI Palpation (GI): Soft to palpation, nontender and no guarding Skin Other: Left perianal area with note of multiple small sinuses, about 7 cm away from the anal verge, with no significant induration Neuro General: patient oriented x3 Assessment & Plan Assessment & Plan (1) Anal fistula: Code(s): K60.3 - Anal fistula Plan: He has recurrence of this multiple cystic indurated area sinuses on the left side near the buttock. I had explored this before in the OR and did not see any fistulous connection to the anal canal. I am uncertain as to whether this is hidradenitis or recurrent fistula. I am going to start him on a trial of doxycycline. I did explain to him that the next option would be to re examined him in the operating room under anesthesia and explore the sinuses to see if there is any fistulous disease He would like to avoid another surgery if much as possible. Coding Level of Care Code Est Pt Level 3 (28350) Diagnoses Anal fistula K60.3
[2023-04-22 15:51] VITALS: BP 129/74; PULSE 73; BMI 27.0
== END 2023-04-22 16:11 | disposition home or self-care (01) ==
PROVIDERS: PCP Internal Medicine; Visit Provider Surgery
DX: K60.3 Anal fistula (principal)
CPT/HCPCS: 99213

== ENCOUNTER → 2023-04-22 15:43 | Outpatient (BNVA) | payer OTHER, SELFPAY | PROVIDERS: PCP Internal Medicine; Visit Provider Surgery | DX: K60.3 Anal fistula (principal) | CPT/HCPCS: 99212 ==

== ENCOUNTER 2023-12-21 16:21 | Outpatient (AMB) | payer OTHER, SELFPAY ==
--- NOTE | 2023-12-21 16:23 | A.OFFPC_ITS ---
Vital Signs 12/21/23 16:25 Height 5 ft 5 in Weight 154 lb BMI 25.6 BP 106/80 Blood Pressure Location Lt brachial Position Sitting Pulse 71 Pulse Source Pulse Oximeter Pulse Oximetry (%) 95 Oxygen Delivery Method Room Air Intake Visit Reasons: Annual PE Allergies mri contrast Adverse Reaction (Mild, Uncoded 12/21/23 16:28) Nausea Medication List - Last Reconciled 12/21/23 by Lucinda Plata MD Bacillus coagulans (Digestive Advantage Probiotic Gummy) cells PO Tobacco use date assessed: 12/21/23 Dental Screening Dental Screen Date: 12/21/23 Did you have a dental visit in the last 12 months?: Yes Did you have a dental problem in the last 6 months where you did not have access to dental care?: No Was dental information given to patient?: Patient has dentist HPI Annual PE HPI Details 38-year-old male(noted 8 lb weight loss) with GERD and history of anal fistula coming in for physical exam last seen in 2022. Review of the notes has followed up with the surgeon in April for the anal fistula has had fistulotomy 02/08/2022. Patient had recurrence of the multiple cystic indurated area left side of the gluteal area. Patient has been given doxycycline to try to treat for hydradenitis option of OR under anesthesia exploration. PAtient did see [place] surgeon in [facility] and was advised surgery. [facility] Medical History GERD (gastroesophageal reflux disease) Surgical arteriovenous fistula hemorrhage Perianal cyst Sebaceous cyst Surgical History Hx of colonoscopy History of surgery (02/17/22) Previous back surgery Family History Mother No problems noted. Father No problems noted. Brother No problems noted. Brother No problems noted. Sister No problems noted. Social History (Updated 12/21/23 @ 16:38 by Lucinda Plata MD) Housing: Apartment Alcohol intake: current Comment: oonce Q 3 months mixed drink Patient Tobacco Use Status: Former Tobacco user Tobacco use type: Cigarette Years Smoked: teen, now MJ e-Cigarette/Vaping Use: Never Used Second Hand Smoke Exposure: No Substance Use Type: Marijuana Current occupational status: employed Current occupation: [employer] Cognitive needs: No Hearing needs: No Vision needs: No Questionnaire PHQ-9 Over the last 2 weeks, how often have you been bothered by any of the following problems? 1. Little interest or pleasure in doing things: not at all 2. Feeling down, depressed, or hopeless: not at all 3. Trouble falling or staying asleep, or sleeping too much: not at all 4. Feeling tired or having little energy: not at all 5. Poor appetite or overeating: not at all 6. Feeling bad about yourself - or that you are a failure or have let yourself or your family down: not at all 7. Trouble concentrating on things, such as reading the newspaper or watching television: not at all 8. Moving or speaking so slowly that other people could have noticed. Or the opposite - being so fidgety or restless that you have been moving around a lot more than usual: not at all 9. Thoughts that you would be better off or of hurting yourself in some way: not at all Total score: 0 Depression Screening Interpretation: Negative Depression Screening Done: Yes Source: Developed by Drs. Tc Garcia, Gi Chavez, Gagan Sanchez and colleagues, with an educational jose j from [employer]. Thrive Questionnaire Date Thrive assessed: 03/30/22 I am a: Patient What is your living situation today?: I choose not to answer this question Within the past 12 months, did the food you bought not last and you didn't have the money to get more?: I choose not to answer this question Within the past 12 months, did you worry whether your food would run out before you got money to buy more?: I choose not to answer this question Do you have trouble paying for medicines?: I choose not to answer this question Do you have trouble getting transportation to medical appointments?: I choose not to answer this question Do you have trouble paying your heating and electricity bill?: I choose not to answer this question Do you have trouble taking care of your child, family member or friend?: I choose not to answer this question Do you have trouble with day-to-day activities such as bathing, preparing meals, shopping, managing finances, etc.?: I choose not to answer this question Are you currently unemployed and looking for a job?: I choose not to answer this question Are you interested in more education?: I choose not to answer this question Please select the resources that you would like help with: None Currently or been in a relationship where the following occur: I choose not to answer THRIVE Score: 0 AUDIT C Alcohol Use Questionnaire (AUDIT-C) 1. How often do you have a drink containing alcohol?: Never 2. How many drinks containing alcohol do you have on a typical day when you are drinking?: 1 or 2 (0) 3. How often do you have six or more drinks on one occasion?: Never Total Score: 0 LAURA-7 AMB Questionnaire LAURA-7 Date LAURA - 7 assessed: 12/21/23 Feeling nervous, anxious, or on edge: 0 = Not at all Not being able to stop or control worryin = Not at all Worrying too much about different things: 0 = Not at all Trouble relaxin = Not at all Being so restless that it is hard to sit still: 0 = Not at all Becoming easily annoyed or irritable: 0 = Not at all Feeling afraid as if something awful might happen: 0 = Not at all Total LAURA-7 score (0-4 normal; 5-9 mild; 10-14 moderate; 15-21 severe): 0 Source: Developed by Drs. Tc Garcia, Gi Chavez, Gagan Sanchez and colleagues, with an educational jose j from [employer]. Review of Systems Const Denies poor appetite and Denies weakness Eyes Denies no additional complaints ENT Reports Normal hearing present, Denies dizziness, Denies nasal congestion, Denies tinnitus and Denies sore throat Card Denies chest pain, Denies syncope, Denies rapid heart rate and Denies dyspnea Resp Denies cough and Denies dyspnea GI Denies change in stool character, Reports constipation, Denies diarrhea, Denies nausea and Denies vomiting Denies dysuria and Denies urinary frequency Neuro Reports Normal hearing present, Denies confusion, Denies dizziness, Denies syncope and Denies weakness Psych Denies confusion Physical exam (Primary Care) Vital Signs: Last Vital Signs Pulse 71 12/21/23 16:25 BP 106/80 12/21/23 16:25 Pulse Ox 95 12/21/23 16:25 Oxygen Delivery Method Room Air 10/01/24 16:25 BMI result Body Mass Index 25.6 Tobacco/Smoking Status: Tobacco use Status Tobacco use date assessed 12/21/23 12/21/23 16:29 Patient Tobacco Use Status Former Tobacco user 12/21/23 16:38 Tobacco use type Cigarette 12/21/23 16:38 e-Cigarette/Vaping Use Never Used 12/21/23 16:38 PHQ-9: PHQ-9 Score PHQ-9: Total score 0 12/21/23 18:52 Depression Screening Interpretation: Negative Thrive Assessment: Date of Thrive Assessment Date Thrive assessed 03/30/22 12/21/23 16:25 Currently or been in a relationship where the following occur: I choose not to answer Const General: No confusion Orientation/consciousness: No confusion HENMT Head: Yes normocephalic Ears: external ears normal and TM's normal bilaterally Face and sinus: Yes normal facial exam Mouth: moist mucous membranes Throat: Yes tonsils normal Eyes Conjunctivae: conjunctivae normal Pupils: Equal, round and reactive pupils present and Pupil accommodation reflex normal Direct Ophthalmoscopy: normal light reflex Neck Neck: No lymphadenopathy Thyroid: Thyroid normal Chest Chest palpation & inspection: normal inspection of the chest Resp Effort & Inspection: normal respiratory effort and no audible wheezes Auscultation: clear to auscultation bilaterally, no crackles, no wheezes and lung sounds not diminished Cardio Rate: regular rate Rhythm: regular rhythm Peripheral pulses: radial pulses present and dorsalis pedis present GI Other: L gluteal skin thickening noted Palpation (GI): no masses Auscultation: normal bowel sounds and normoactive bowel sounds Rectal Exam - Male: Yes deferred Male General Exam: Yes normal external exam Skin General skin exam: no rashes or lesions noted Rashes: no rashes Neuro General: No confusion Cranial nerves: Yes Equal, round and reactive pupils present and Yes Normal hearing present Cognition (Neuro): normal cognition Gait exam (Neuro): Normal gait present Motor exam (neuro): 5/5 motor strength present throughout Deep tendon reflexes (DTR's): Right brachioradialis reflex intensity grade: 2+, Left brachioradialis reflex intensity grade: 2+, Right patellar reflex intensity grade: 2+ and Left patellar reflex intensity grade: 2+ Extrem General: No edema Coding Level of Care Code Est Pt Prev Care [id number]) Diagnoses Annual physical exam Z00.00 Anal fistula K60.3 Gastroesophageal reflux disease without esophagitis K21.9 Esophagitis presence: without esophagitis Facial dermatitis L30.9 Additional Codes PHQ-9 - 98314 - PHQ-9 Billing: ([id number]) Assessment & Plan Assessment & Plan (1) Annual physical exam: Code(s): Z00.00 - Encounter for general adult medical examination without abnormal findings Category: Medical Plan: Patient is advised to eat healthy, keep well hydrated, keep active and have adequate sleep. (2) Anal fistula: Code(s): K60.3 - Anal fistula Category: Medical Plan: Continues to have the problem of the fistula and seeking [facility] surgery. Was advised that this will require another procedure. Patient states has been feeling anxious with this problem. (3) GERD (gastroesophageal reflux disease): Code(s): K21.9 - Gastro-esophageal reflux disease without esophagitis Category: Medical Qualifiers: Esophagitis presence: without esophagitis Qualified Code(s): K21.9 - Gastro-esophageal reflux disease without esophagitis Plan: Avoid the foods that causes that usually spicy foods, tomato products, juices, coffee, soda and foods that your sensitive to. After eating do not lie down, allow 3-4 hours before in lie down. And keep the head of bed above 30 degrees to avoid the acid from going up. (4) Facial dermatitis: Code(s): L30.9 - Dermatitis, unspecified Category: Medical Plan: Referral to dermatology while prescription for facial/skin cleaning prescribed Orders: Referrals Dermatology Referral L30.9 - Dermatitis, unspecified Medications: New benzoyl peroxide 5% 1 appl topical DAILY PRN 142 grams 0RF acne L30.9 - Dermatitis, unspecified
[2023-12-21 16:25] VITALS: BP 106/80; PULSE 71; O2SAT 95; BMI 25.6
== END 2023-12-21 16:56 | disposition home or self-care (01) ==
PROVIDERS: PCP Internal Medicine; Visit Provider Internal Medicine
DX: Z00.00 Encounter for general adult medical examination without abnormal findings (principal); K60.3 Anal fistula; K21.9 Gastro-esophageal reflux disease without esophagitis; L30.9 Dermatitis, unspecified

== ENCOUNTER → 2023-12-21 16:21 | Outpatient (BNVA) | payer OTHER, SELFPAY | PROVIDERS: PCP Internal Medicine; Visit Provider Internal Medicine | DX: Z00.00 Encounter for general adult medical examination without abnormal findings (principal); K60.30 Anal fistula, unspecified; K21.9 Gastro-esophageal reflux disease without esophagitis; L30.9 Dermatitis, unspecified | CPT/HCPCS: 96127; 99395 ==

== ENCOUNTER 2024-12-05 10:32 | Outpatient (REF) | payer OTHER, SELFPAY ==
[2024-12-05 14:15] LABS: MANUAL DIFF FLAG NO
[2024-12-05 14:33] LABS: Hematocrit 43.7 % (42.0-52.0); Hemoglobin 15.3 g/dl (14.0-18.0); Imm Gran Abs Auto 0.03 X10*3/uL (0.00-0.03); Imm Gran Pct Auto 0.4 % (0.0-0.4); Lymphocytes Absolute Auto 2.1 X10*3/uL (1.2-4.9); Mean Corpuscular HGB Conc 35.0 g/dl (31.0-36.0); Mean Corpuscular Hemoglobin 30.7 pg (27.0-33.0); Mean Corpuscular Volume 87.6 fL (80.0-98.0); NRBC Abs Auto 0.000 X10*3/uL (0.0-0.012); NRBC Pct Auto 0.0 /100WBC (0.0-0.2); Platelet Count 238 X10*3/uL (160-400); Red Blood Count 4.99 X10*6/uL (4.60-5.80); White Blood Count 6.9 X10*3/uL (4.8-10.8)
[2024-12-05 15:05] LABS: Alanine Aminotransferase 41 U/L (0-40); Albumin Level 4.6 g/dL (3.5-5.0); Alkaline Phosphatase 58 U/L (39-117); Anion Gap 9 (12-20); Aspartate Amino Transferase 31 U/L (5-37); Blood Urea Nitrogen 8 mg/dL (9-16); Calcium 9.2 mg/dL (8.4-10.2); Carbon Dioxide 31 mmol/L (22-29); Chloride 104 mmol/L (96-108); Cholesterol 188 mg/dL (<200); Estimated Glomerular Filt Rate > 60; HDL Cholesterol 36 mg/dL (>40); Potassium 3.7 mmol/L (3.3-5.1); Sodium 140 mmol/L (135-145); Total Protein 7.6 g/dL (6.5-8.0); Triglycerides 138 mg/dL (<150)
[2024-12-05 15:11] LABS: Free T4 (Free Thyroxine) 1.04 ng/dL (0.71-1.85); Thyroid Stimulating Hormone 1.12 uIU/mL (0.32-4.0)
[2024-12-05 15:27] LABS: Folate 11.4 ng/mL (> or = 4.0); Vitamin B12 289 pg/mL (200-900)
== END 2024-12-05 10:33 | disposition home or self-care (01) ==
LOC: HO.WFDLDS 10:32
PROVIDERS: Visit Provider Internal Medicine
DX: K21.9 Gastro-esophageal reflux disease without esophagitis (principal); R79.89 Other specified abnormal findings of blood chemistry; E78.00 Pure hypercholesterolemia, unspecified
CPT/HCPCS: 36415; 80053; 80061; 82607; 82746; 84439; 84443; 85025

== ENCOUNTER 2025-01-04 16:12 | Outpatient (AMB) | payer OTHER, SELFPAY ==
--- NOTE | 2025-01-04 16:26 | A.OFFPC_ITS ---
Vital Signs 01/04/25 16:27 Height 5 ft 5 in Weight 161 lb BMI 26.8 BP 118/68 Blood Pressure Location Lt brachial Position Sitting Pulse 79 Pulse Source Pulse Oximeter Pulse Oximetry (%) 98 Oxygen Delivery Method Room Air Intake Visit Reasons: PE Allergies mri contrast Adverse Reaction (Mild, Uncoded 01/04/25 16:28) Nausea Medication List - Last Reconciled 01/04/25 by Lucinda Plata MD cholecalciferol (vitamin D3) 50 mcg PO DAILY multivitamin (One Daily Multivitamin tablet) 1 tab PO DAILY psyllium husk (Daily Fiber) 0.4 grams PO BEDTIME Tobacco use date assessed: 01/04/25 Dental Screening Dental Screen Date: 01/04/25 Did you have a dental visit in the last 12 months?: Yes Did you have a dental problem in the last 6 months where you did not have access to dental care?: No Was dental information given to patient?: Patient has dentist HPI PE HPI Details nausea, fatigue PFSH Medical History GERD (gastroesophageal reflux disease) Surgical arteriovenous fistula hemorrhage Perianal cyst Sebaceous cyst Surgical History Hx of colonoscopy History of surgery (02/17/22) Previous back surgery Family History Mother No problems noted. Father No problems noted. Brother No problems noted. Brother No problems noted. Sister No problems noted. Social History (Updated 01/04/25 @ 16:58 by Lucinda Plata MD) Housing: Apartment Alcohol intake: current Comment: once Q 3 months mixed drink Patient Tobacco Use Status: Former Tobacco user Tobacco use type: Cigarette Years Smoked: teen, now MJ e-Cigarette/Vaping Use: Never Used Second Hand Smoke Exposure: No Substance Use Type: Marijuana Current occupational status: employed Current occupation: [employer] Cognitive needs: No Hearing needs: No Vision needs: No Questionnaire PHQ-9 Over the last 2 weeks, how often have you been bothered by any of the following problems? 1. Little interest or pleasure in doing things: not at all 2. Feeling down, depressed, or hopeless: not at all 3. Trouble falling or staying asleep, or sleeping too much: not at all 4. Feeling tired or having little energy: nearly every day 5. Poor appetite or overeating: not at all 6. Feeling bad about yourself - or that you are a failure or have let yourself or your family down: not at all 7. Trouble concentrating on things, such as reading the newspaper or watching television: not at all 8. Moving or speaking so slowly that other people could have noticed. Or the opposite - being so fidgety or restless that you have been moving around a lot more than usual: not at all 9. Thoughts that you would be better off or of hurting yourself in some way: not at all Total score: 3 Depression Screening Interpretation: Positive Depression Screening Done: Yes Source: Developed by Drs. Tc Garcia, Gi Chavez, Gagan Sanchez and colleagues, with an educational jose j from [employer]. Thrive Questionnaire Date Thrive assessed: 01/03/25 I am a: Patient What is your living situation today?: I choose not to answer this question Within the past 12 months, did the food you bought not last and you didn't have the money to get more?: I choose not to answer this question Within the past 12 months, did you worry whether your food would run out before you got money to buy more?: I choose not to answer this question Do you have trouble paying for medicines?: I choose not to answer this question Do you have trouble getting transportation to medical appointments?: I choose n ot to answer this question Do you have trouble paying your heating and electricity bill?: I choose not to answer this question Do you have trouble taking care of your child, family member or friend?: I choose not to answer this question Do you have trouble with day-to-day activities such as bathing, preparing meals, shopping, managing finances, etc.?: I choose not to answer this question Are you currently unemployed and looking for a job?: I choose not to answer this question Are you interested in more education?: I choose not to answer this question Please select the resources that you would like help with: None Currently or been in a relationship where the following occur: No concerns reported THRIVE Score: 0 AUDIT C Alcohol Use Questionnaire (AUDIT-C) 1. How often do you have a drink containing alcohol?: Never 2. How many drinks containing alcohol do you have on a typical day when you are drinking?: 1 or 2 3. How often do you have six or more drinks on one occasion?: Never Total Score: 0 LAURA-7 AMB Questionnaire LAURA-7 Date LAURA - 7 assessed: 01/04/25 Feeling nervous, anxious, or on edge: 0 = Not at all Not being able to stop or control worryin = Not at all Worrying too much about different things: 0 = Not at all Trouble relaxin = Not at all Being so restless that it is hard to sit still: 0 = Not at all Becoming easily annoyed or irritable: 0 = Not at all Feeling afraid as if something awful might happen: 0 = Not at all Total LAURA-7 score (0-4 normal; 5-9 mild; 10-14 moderate; 15-21 severe): 0 Source: Developed by Drs. Tc Garcia, Gi Chavez, Gagan Sanchez and colleagues, with an educational jose j from [employer]. Review of Systems Const Denies poor appetite and Denies weakness Eyes Denies no additional complaints ENT Reports Normal hearing present, Denies dizziness, Denies nasal congestion, Denies tinnitus and Denies sore throat Card Denies chest pain, Denies syncope, Denies rapid heart rate and Denies dyspnea Resp Denies cough and Denies dyspnea GI Denies change in stool character, Reports constipation, Denies diarrhea, Denies nausea and Denies vomiting Denies dysuria and Denies urinary frequency Neuro Reports Normal hearing present, Denies confusion, Denies dizziness, Denies syncope and Denies weakness Psych Denies confusion Physical exam (Primary Care) Vital Signs: Last Vital Signs Pulse 79 01/04/25 16:27 BP 118/68 01/04/25 16:27 Pulse Ox 98 01/04/25 16:27 Oxygen Delivery Method Room Air 01/04/25 16:27 BMI result Body Mass Index 26.8 Tobacco/Smoking Status: Tobacco use Status Tobacco use date assessed 01/04/25 01/04/25 16:33 Patient Tobacco Use Status Former Tobacco user 01/04/25 16:33 Tobacco use type Cigarette 01/04/25 16:33 e-Cigarette/Vaping Use Never Used 01/04/25 16:33 PHQ-9: PHQ-9 Score PHQ-9: Total score 3 01/04/25 16:33 Depression Screening Interpretation: Positive Thrive Assessment: Date of Thrive Assessment Date Thrive assessed 01/03/25 01/04/25 16:33 Currently or been in a relationship where the following occur: No concerns reported Const General: No confusion Orientation/consciousness: No confusion HENMT Head: Yes normocephalic Ears: external ears normal and TM's normal bilaterally Face and sinus: Yes normal facial exam Mouth: moist mucous membranes Throat: Yes tonsils normal Eyes Conjunctivae: conjunctivae normal Pupils: Equal, round and reactive pupils present and Pupil accommodation reflex normal Direct Ophthalmoscopy: normal light reflex Neck Neck: No lymphadenopathy Thyroid: Thyroid normal Chest Chest palpation & inspection: normal inspection of the chest Resp Effort & Inspection: normal respiratory effort and no audible wheezes Auscultation: clear to auscultation bilaterally, no crackles, no wheezes and lung sounds not diminished Cardio Rate: regular rate Rhythm: regular rhythm Peripheral pulses: radial pulses present and dorsalis pedis present GI Palpation (GI): no masses Auscultation: normal bowel sounds and normoactive bowel sounds Rectal Exam - Male: Yes deferred Skin General skin exam: no rashes or lesions noted Rashes: no rashes Neuro General: No confusion Cranial nerves: Yes Equal, round and reactive pupils present and Yes Normal hearing present Cognition (Neuro): normal cognition Gait exam (Neuro): Normal gait present Motor exam (neuro): 5/5 motor strength present throughout Deep tendon reflexes (DTR's): Right brachioradialis reflex intensity grade: 2+, Left brachioradialis reflex intensity grade: 2+, Right patellar reflex intensity grade: 2+ and Left patellar reflex intensity grade: 2+ Extrem General: No edema Coding Level of Care Code Est Pt Prev Care [id number]([id number]) Diagnoses Annual physical exam Z00.00 History of tobacco abuse Z87.891 Anal fistula K60.3 Gastroesophageal reflux disease without esophagitis K21.9 Esophagitis presence: without esophagitis Overweight (BMI 25.0-29.9) E66.3 LFT elevation R79.89 Assessment & Plan Assessment & Plan (1) Annual physical exam: Code(s): Z00.00 - Encounter for general adult medical examination without abnormal findings Category: Medical Plan: Patient is advised to eat healthy, keep well hydrated, keep active and have adequate sleep. (2) History of tobacco abuse: Code(s): Z87.891 - Personal history of nicotine dependence Category: Social Hx Plan: Patient is strongly advised against smoking! (3) Anal fistula: Code(s): K60.3 - Anal fistula Category: Medical Plan: Review of the notes patient is planned to have an MRI question of IBD. (4) GERD (gastroesophageal reflux disease): Code(s): K21.9 - Gastro-esophageal reflux disease without esophagitis Category: Medical Qualifiers: Esophagitis presence: without esophagitis Qualified Code(s): K21.9 - Gastro-esophageal reflux disease without esophagitis Plan: Avoid the foods that causes that usually spicy foods, tomato products, juices, coffee, soda and foods that your sensitive to. After eating do not lie down, allow 3-4 hours before in lie down. And keep the head of bed above 30 degrees to avoid the acid from going up. (5) Overweight (BMI 25.0-29.9): Code(s): E66.3 - Overweight Category: Medical Plan: Diet and exercise (6) LFT elevation: Code(s): R79.89 - Other specified abnormal findings of blood chemistry Category: Medical Plan: Discussion about doing an ultrasound and hepatitis profile. Plan History of Present Illness The patient is a 39-year-old male presenting for a physical examination and evaluation of multiple ongoing health issues. The patient reports a 7-pound weight gain over the past week, which began in December 2023. He has a history of anal fistula and has been scheduled for MR enterography. The patient has a history of tobacco use disorder but reports no current use of cigarettes. He experiences gastroesophageal reflux disease (GERD) with weekly heartburn episodes, often exacerbated by late meals. The patient has a history of ventricular disease and reports fatigue and low energy levels, which have been persistent. He has been experiencing dry skin and redness on the right eyelid, which he attributes to environmental factors and frequent rubbing. Recent blood work showed normal blood counts, normal electrolytes, and renal function, but elevated liver function tests and low Vitamin B12 levels. The patient also reports a Vitamin D deficiency, which is common in the region due to limited sun exposure. There is a suspicion of inflammatory bowel disease, and the patient has been advised to undergo further diagnostic testing, including an MRI and possibly an endoscopy. Health Maintenance - Advised to take Vitamin D supplements due to deficiency - Encouraged to avoid smoking - Recommended to monitor liver function tests and consider ultrasound - Suggested further diagnostic testing for suspected inflammatory bowel disease Social History - Reports no current tobacco use, with a history of tobacco use disorder - Consumes alcohol very rarely, approximately once every few months - Works in a shop environment, contributing to dry skin issues Review of Systems - General: Reports fatigue and low energy levels - Skin: Reports dry skin and redness on the right eyelid - Gastrointestinal: Reports weekly heartburn, denies nausea and vomiting - Respiratory: Denies shortness of breath - Cardiovascular: Denies chest pain - Neurological: Denies syncope, reports no pain during examination Physical Exam General: Cooperative, healthy appearing, comfortable, no acute distress and well developed Orientation: Patient oriented x3, but reports feeling disoriented during a recent episode Limitations: No limitations Head: Normal to inspection, but reports occasional swelling of the right eyelid and dry skin on the face Ears: Hearing grossly normal bilaterally Nose: Normal external nose present Face and sinus: Normal facial exam, but reports dry skin Eyes: Appearance normal, both eyes and all related structures, but reports occasional swelling of the right eyelid Neck: Normal visual inspection and Yes full ROM Respiratory: Normal respiratory effort and able to speak in complete sentences. Clear to auscultation bilaterally Cardiovascular: Regular rate and rhythm. Normal S1 and S2 GI: Normal to inspection. Soft to palpation and nontender, but reports weekly heartburn Skin: No rashes or lesions noted, but reports dry skin on the face Neuro: Patient oriented x3, but reports feeling fatigued and disoriented during a recent episode Extremities: Normal to inspection Results - Labs: Normal blood count, normal electrolytes, elevated liver function test (41), low Vitamin B12, Vitamin D deficiency Plan Patient was informed and verbally consented to the use of an ambient scribe for clinic note documentation during this visit. 1. Weight Gain The patient has experienced a 7-pound weight gain over the past week, which began in December 2023. Further evaluation of dietary habits and physical activity levels is recommended to address this issue. 2. History Of Anal Fistula The patient has a history of anal fistula and is scheduled for MR enterography to assess the condition further. 3. Tobacco Use Disorder The patient has a history of tobacco use disorder but reports no current use of cigarettes. Continued abstinence from smoking is strongly advised. 4. Gastroesophageal Reflux Disease (Gerd) The patient experiences weekly heartburn episodes, often exacerbated by late meals. Lifestyle modifications, including avoiding late meals and considering medication, are recommended to manage symptoms. 5. Ventricular Disease The patient has a history of ventricular disease and reports persistent fatigue and low energy levels. Further cardiovascular evaluation may be necessary to assess the underlying cause of fatigue. 6. Vitamin D Deficiency The patient reports a Vitamin D deficiency, which is common in the region due to limited sun exposure. Daily supplementation with Vitamin D is recommended. 7. Low Vitamin B12 Recent blood work indicated low Vitamin B12 levels. Supplementation and dietary adjustments may be necessary to address this deficiency. 8. Elevated Liver Function Test The patient has an elevated liver function test with a level of 41. Further evaluation, including an ultrasound and hepatitis profile, is recommended to determine the cause. 9. Fatigue The patient reports persistent fatigue and low energy levels. Further investigation into potential underlying causes, including cardiovascular and metabolic factors, is advised. 10. Inflammatory Bowel Disease (Suspected) There is a suspicion of inflammatory bowel disease, and the patient has been advised to undergo further diagnostic testing, including an MRI and possibly an endoscopy. Discussion Notes During the visit, we discussed the patient's recent weight gain and the need for dietary and lifestyle modifications to address it. We reviewed the patient's history of anal fistula and the upcoming MR enterography to evaluate the condition further. The patient was advised to continue abstaining from smoking and to manage GERD symptoms through lifestyle changes and potential medication. We also discussed the elevated liver function test and the need for further evaluation, including an ultrasound and hepatitis profile. The patient was informed about the Vitamin D deficiency and the importance of supplementation. We addressed the suspicion of inflammatory bowel disease and the plan for further diagnostic testing. Patient Instructions - Monitor dietary habits and increase physical activity to address weight gain. - Continue to abstain from smoking. - Manage GERD symptoms by avoiding late meals and considering medication if necessary. - Take Vitamin D supplements daily as advised. - Follow up on liver function tests and consider an ultrasound and hepatitis profile. - Undergo further diagnostic testing for suspected inflammatory bowel disease.
[2025-01-04 16:27] VITALS: BP 118/68; PULSE 79; O2SAT 98; BMI 26.8
== END 2025-01-04 17:12 | disposition home or self-care (01) ==
LOC: HO.HMCH 16:13
PROVIDERS: PCP Internal Medicine; Visit Provider Internal Medicine
DX: Z00.00 Encounter for general adult medical examination without abnormal findings (principal); Z87.891 Personal history of nicotine dependence; K60.30 Anal fistula, unspecified; K21.9 Gastro-esophageal reflux disease without esophagitis; E66.3 Overweight; R79.89 Other specified abnormal findings of blood chemistry